=== PATIENT | female | born 1990 | race Caucasian/White ===

== ENCOUNTER 2021-01-27 18:51 | Emergency (ER) | payer OTHER, SELFPAY ==
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
[2021-01-27 18:59] VITALS: BP 148/105; PULSE 83; RESP 20; TEMP 37.2; O2SAT 100
[2021-01-27] MEDS: NAPROXEN 500 MG TABLET PO (20:04)
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
[2021-01-27 20:35] VITALS: BP 131/72; PULSE 76; RESP 16; O2SAT 98
== END 2021-01-27 20:35 | disposition home or self-care (01) ==
PROVIDERS: Emergency Provider Emergency Medicine
DX: S13.4XXA Sprain of ligaments of cervical spine, initial encounter (principal); S63.502A Unspecified sprain of left wrist, initial encounter; V43.52XA Car driver injured in collision with other type car in traffic accident, initial encounter
CPT/HCPCS: 73110; 99283; A9270